=== PATIENT | male | born 1955 | race Caucasian/White ===

== ENCOUNTER 2021-03-16 00:37 | Day surgery (SDC) | payer OTHER, SELFPAY ==
[2021-03-06 09:14] VITALS: BMI 27.9
--- NOTE | 2021-03-16 08:04 | P.PNAN_ITS ---
Anes - Initial Pre Proc Eval Procedure: Operation Date: 03/16/21 09:00 Proposed Procedures p Screening Colonoscopy - Kelton Diop MD Date/Time: 03/16/21 08:04 Surgeon: Kelton Diop MD Pre Op Diagnosis: hx of colon polyps Patient Data Age: 65 Gender: M Height: 1.8 m Weight: 91 kg Allergies Allergy/AdvReac Type Severity Reaction Status Date / Time No Known Allergies Allergy Verified 03/16/21 08:05 Home Medications Medication Instructions Recorded Confirmed Type alpha lipoic acid 200 mg capsule 400 mg PO DAILY cap 02/15/19 03/16/21 History cinnamon bark 500 mg capsule 500 mg PO DAILY 02/15/19 03/16/21 History diltiazem HCl 240 mg 240 mg PO DAILY 02/15/19 03/16/21 History capsule,extended release 24 hr esomeprazole magnesium 20 mg 20 mg PO DAILY 02/15/19 03/16/21 History capsule,delayed release gabapentin 300 mg capsule 300 mg PO BID 02/15/19 03/16/21 History glucosamine-chondroitin 250 mg-200 1 tablet PO DAILY tablet 02/15/19 03/16/21 History mg tablet lisinopril 20 mg tablet 20 mg PO DAILY 02/15/19 03/16/21 History magnesium 250 mg tablet 250 mg PO DAILY 02/15/19 03/16/21 History resveratrol 250 mg capsule 250 mg PO DAILY cap 02/15/19 03/16/21 History cholecalciferol (vitamin D3) 25 mcg PO DAILY 03/06/21 03/16/21 History [Vitamin D3] mecobalamin (vitamin B12) 500 mcg PO DAILY 03/06/21 03/16/21 History vitamin B complex [B Complex] 1 tablet PO DAILY 03/06/21 03/16/21 History Patient hx anesthesia problems: none Family hx anesthesia problems: none Results Review: All pre-operative results and documents have been reviewed as part of the pre-operative evaluation. [facility] Past Medical History Medical History (Updated 03/16/21 @ 08:33 by Kelton Diop MD) Eosinophilic syndrome GERD (gastroesophageal reflux disease) History of melanoma Hyperlipidemia Hypertension Neuropathy BARON (obstructive sleep apnea) Vasospastic angina Family History Family History (System 02/28/19 @ 12:20 by Jud Rea) Father Cerebrovascular accident Grandparent Cerebrovascular accident Family history of lung cancer Mother Family history of lung cancer Sibling Family history of malignant neoplasm of breast in first degree relative Social History Social History (System 02/28/19 @ 12:20 by Jud Rea) Smoking status: Current every day smoker Tobacco type: e-cigarettes/vaping Alcohol intake: current Living arrangements: with family Spiritual care concerns: No Anes - Eval Final PreProcedure Day of Procedure 03/16/21 08:04 Patient weight: overweight Heart: regular rate and rhythm Lungs: clear to auscultation and normal air movement Airway: Mallampati scale class II Neurological: alert and oriented Last oral intake: >/= 8 hours ASA classification: III Emergent: no Anesthetic plan: proceed Anesthesia type and monitoring: general GIVS and standard monitoring Results Review: All pre-operative results and documents have been reviewed as part of the pre-operative evaluation. Informed Consent: The patient's anesthetic plan and its attendant risks and benefits were discussed with the patient/family/POA. Questions were solicited and answers provided to the satisfaction of the patient/family/POA.
[2021-03-16 08:06] VITALS: BP 156/78; PULSE 69; RESP 16; TEMP 36.1; O2SAT 99; BMI 27.3
[2021-03-16] MEDS: LACTATED RINGERS 1,000 ML 150 ML IV CONT (08:21)
--- NOTE | 2021-03-16 08:31 | WPDGICN ---
Assessment and Plan Assessment and plan (1) History of colon polyps: Code(s): Z86.010 - Personal history of colonic polyps Status: Acute Assessment and Plan: Patient has a history of Adenomatous colon polyp. Plan is for surveillance colonoscopy now. Further recommendations will be given after endoscopy. GI Consult Note Consult date/time: 03/16/21 08:31 HPI: Diomedes Gamboa is a 65 year old male Presents for screening colonoscopy. Patient reports his current weight appetite and bowel movements are normal. He denies abdominal pain. He has had no bleeding. Family history is non contribute patient does have a prior history of adenomatous colon polyp removed from the colon in 2004. Most recent colonoscopy 2014 revealed a hyperplastic colon polyp. Review of Systems Review of Systems: All systems reviewed & are unremarkable except as noted in HPI and below PMFSH Past Medical History Medical History (Updated 03/16/21 @ 08:33 by Kelton Diop MD) Eosinophilic syndrome GERD (gastroesophageal reflux disease) History of melanoma Hyperlipidemia Hypertension Neuropathy BARON (obstructive sleep apnea) Vasospastic angina Family History Family History (System 02/28/19 @ 12:20 by Jud Rea) Father Cerebrovascular accident Grandparent Cerebrovascular accident Family history of lung cancer Mother Family history of lung cancer Sibling Family history of malignant neoplasm of breast in first degree relative Social History Social History (System 02/28/19 @ 12:20 by Jud Rea) Smoking status: Current every day smoker Tobacco type: e-cigarettes/vaping Alcohol intake: current Living arrangements: with family Spiritual care concerns: No Meds Home Medications and Allergies Home Medications Medication Instructions Recorded Confirmed Type alpha lipoic acid 200 mg capsule 400 mg PO DAILY cap 02/15/19 03/16/21 History cinnamon bark 500 mg capsule 500 mg PO DAILY 02/15/19 03/16/21 History diltiazem HCl 240 mg 240 mg PO DAILY 02/15/19 03/16/21 History capsule,extended release 24 hr esomeprazole magnesium 20 mg 20 mg PO DAILY 02/15/19 03/16/21 History capsule,delayed release gabapentin 300 mg capsule 300 mg PO BID 02/15/19 03/16/21 History glucosamine-chondroitin 250 mg-200 1 tablet PO DAILY tablet 02/15/19 03/16/21 History mg tablet lisinopril 20 mg tablet 20 mg PO DAILY 02/15/19 03/16/21 History magnesium 250 mg tablet 250 mg PO DAILY 02/15/19 03/16/21 History resveratrol 250 mg capsule 250 mg PO DAILY cap 02/15/19 03/16/21 History cholecalciferol (vitamin D3) 25 mcg PO DAILY 03/06/21 03/16/21 History [Vitamin D3] mecobalamin (vitamin B12) 500 mcg PO DAILY 03/06/21 03/16/21 History vitamin B complex [B Complex] 1 tablet PO DAILY 03/06/21 03/16/21 History Allergies Allergy/AdvReac Type Severity Reaction Status Date / Time No Known Allergies Allergy Verified 03/16/21 08:05 Vital Signs Vital Signs - 24 hr 03/16/21 08:06 Temperature 96.9 F L Pulse Rate 69 Respiratory Rate 16 Blood Pressure 156/78 H Pulse Oximetry 99 Exam Narrative: Physical exam reveals patient be alert. Vital signs stable. HEENT exam is unremarkable. Lungs are clear to auscultation and percussion. Heart is without murmur or extra sounds. Abdomen bowel sounds present soft nontender. Digital rectal exam is normal.
[2021-03-16 09:03] VITALS: BP 126/77; PULSE 71; RESP 22; O2SAT 100
[2021-03-16 09:13] VITALS: BP 120/78; PULSE 62; RESP 15; O2SAT 100
[2021-03-16 09:23] VITALS: BP 139/76; PULSE 60; RESP 17; O2SAT 100
== END 2021-03-16 09:42 | disposition home or self-care (01) ==
PROVIDERS: Visit Provider Internal Medicine Gastroenterology
PROC: 0DJD8ZZ Inspection of Lower Intestinal Tract, Via Natural or Artificial Opening Endoscopic (ICD-10-PCS; CPT 45378; principal; 2021-03-16 09:00)
DX: Z12.11 Encounter for screening for malignant neoplasm of colon (principal); D12.5 Benign neoplasm of sigmoid colon; K63.5 Polyp of colon; K21.9 Gastro-esophageal reflux disease without esophagitis; K64.8 Other hemorrhoids; E78.5 Hyperlipidemia, unspecified; I10 Essential (primary) hypertension; G62.9 Polyneuropathy, unspecified; G47.33 Obstructive sleep apnea (adult) (pediatric); F17.290 Nicotine dependence, other tobacco product, uncomplicated
CPT/HCPCS: 45385; 88305; J2704; J7120

== ENCOUNTER 2022-07-02 08:06 | Outpatient (CLI) | payer OTHER, SELFPAY ==
[2022-07-02 08:46] LABS: Basophils Percent Auto 0.6 % (0.2-1.2); Eosinophils Absolute Auto 0.2 K/mm3 (0-0.3); Eosinophils Percent Auto 3.3 % (0-4.4); Hematocrit 42.2 % (42.0-52.0); Hemoglobin 13.5 g/dL (14.0-18.0); Immature Granulocyte Absolute 0.01 K/mm3 (0.00-0.031); Immature Granulocyte Percent A 0.1 % (0-0.5); Lymphocytes Absolute Auto 1.47 K/mm3 (0.9-3.2); Mean Corpuscular Volume 87.4 fl (80-100); Mean Platelet Volume 10.1 fl (7.4-10.4); Monocytes Absolute Auto 0.5 K/mm3 (0.1-0.6); Monocytes Percent Auto 7.6 % (2.6-8.5); Neutrophils Absolute Auto 4.7 K/mm3 (1.3-6.7); Neutrophils Percent Auto 67.4 % (45.5-73.1); Platelet Count Result 276 k/mm3 (150-375); Red Blood Count 4.83 M/mm3 (4.6-6.20); Red Cell Distribution Width 12.9 % (11.5-14.5)
[2022-07-02 08:56] LABS: Alanine Aminotransferase 41 U/L (6-50); Albumin Level 4.4 g/dL (3.5-5.1); Alkaline Phosphatase 72 U/L (38-126); Anion Gap 9 mmol/L (8-16); Aspartate Amino Transferase 29 U/L (17-59); Bilirubin,Total 0.5 mg/dL (0.2-1.3); Blood Urea Nitrogen 13 mg/dL (9-20); Calcium 8.8 mg/dL (8.4-10.2); Carbon Dioxide 31 mmol/L (22-30); Chloride 99 mmol/L (98-107); Cholesterol 168 mg/dL (0-200); Estimated Glomerular Filt Rate > 60; Glucose 129 mg/dL (65-110); HDL Direct 41 mg/dL; Sodium 139 mmol/L (137-145); Triglycerides 124 mg/dL (<150)
[2022-07-02 09:18] LABS: LDL Cholesterol Direct 85 mg/dL
== END 2022-07-02 08:07 | disposition home or self-care (01) ==
LOC: ANHLAB 08:10
PROVIDERS: PCP Family Medicine; Visit Provider Family Medicine
DX: R73.03 Prediabetes (principal); E78.5 Hyperlipidemia, unspecified; I10 Essential (primary) hypertension; D72.10 Eosinophilia, unspecified
CPT/HCPCS: 36415; 80053; 80061; 83036; 85025

== ENCOUNTER 2023-07-16 09:38 | Outpatient (CLI) | payer MEDICARE, SELFPAY ==
--- NOTE | ~2023-07-16 | US_ITS ---
EXAMINATION: US aorta [facility] scr[facility] DATE: 07/16/2023 10:50 CDT INDICATION: Abdominal aortic aneurysm screen. Smoking history. High cholesterol. Hypertension. TECHNIQUE: Grayscale, color Doppler, and pulsed Doppler images of the aorta and common iliac arteries were obtained. COMPARISON: None. FINDINGS: The proximal aorta measures 2 cm greatest sagittal dimension. The mid aorta measures 1.3 cm greatest sagittal dimension. The distal aorta measures 1.3 cm greatest sagittal dimension. The right common in ternal iliac artery measures 6 mm. The left common iliac artery measures 6 mm. IMPRESSION: 1. Normal caliber aorta without aneurysm. Reviewed, dictated and finalized at location A.
== END 2023-07-16 09:39 | disposition home or self-care (01) ==
DX: Z13.6 Encounter for screening for cardiovascular disorders (principal)
CPT/HCPCS: 76706

== ENCOUNTER 2024-08-11 12:22 | Outpatient (CLI) | payer MEDICARE, SELFPAY ==
--- NOTE | ~2024-08-11 | CT_ITS ---
CT Scan of the Chest without Contrast: Clinical Indication: Lung cancer screening, nicotine dependence Technique: Contiguous sections were acquired throughout the chest without intravenous contrast. Dose reduction technique was used on this scan by utilizing automated exposure control and iterative recon struction technique. The dose-length product (DLP) was 147.68 mGy-cm. Findings: There is no evidence of any significant mediastinal, hilar or axillary lymphadenopathy. Calcified med iastinal/hilar lymph nodes are present. Coronary artery calcifications are present. There is no evidence of pleural or pericardial effusion. 5 mm right middle lobe nodule present (axial image 96). 2 mm left upper lobe nodule present (axial im age 52). There is mild upper lobe emphysema. Images through the upper abdomen reveal no abnormalities. Impression: Lung RADS 2: Benign appearance 12 month follow-up screening CT advised. Reviewed, dictated and finalized at [facility]. Impression: Lung RADS 2: Benign appearance 12 month follow-up screening CT advised.
--- OUTSIDE RECORDS SUMMARY | 2024-08-11 12:27 | XMS_ITS | Clinical Summary ---
Author Organization [facility] [address] [address] [place] [address] Care Team Providers Care Attending Pathologist Name Role Phone Ashu Hardy MD Primary Care Provider + Allergies No known active allergies Medications magnesium oxide (MAG-OX) 415 mg (250 mg elemental) tablet take 1 by Oral route once [address] (NexIUM) 20 mg capsule Take 1 capsule (20 mg total) by mouth daily before breakfast Active resveratrol 250 mg capsule Take by mouth 2 (two) times a day. Active [id number] 750 mg-644 mg- 30 mg-1 mg tablet daily. Active VITAMIN B COMPLEX ORAL daily. Active gabapentin (NEURONTIN) 300 mg capsuleIndicati ons:Neuropathy Take 1 capsule (300 mg total) by mouth 3 (three) times a day 300 capsule 2 4 Active glycopyrrolate- formoteroL (Bevespi Aerosphere) 9-4.8 mcg inhaler Inhale 2 puffs 2 (two) times a day 3 each 3 4 Active lisinopriL (PRINIVIL,ZESTR IL) 20 mg tabletIndicatio ns:Hypertension , essential Take 1 tablet (20 mg total) by mouth daily 100 tablet 3 5 Active dilTIAZem XR (DILT-XR) 240 mg 24 hr capsuleIndicati ons:Hypertensio n associated with diabetes (HCC) Take 1 capsule (240 mg total) by mouth daily 100 capsule 1 5 Active dilTIAZem XR (DILT-XR) 240 mg 24 hr capsuleIndicati ons:Hypertensio n, essential TAKE 1 CAPSULE BY MOUTH DAILY 100 capsule 5 08/03/19 25 Discontinu ed(Reorder ) Active Problems Problem Noted Date Diagnosed Date BMI 28.0-28.9,adult 01/12/2023 Assessment & Plan (01/12/2023 2:17 PM CDT): Encouraged healthy diet and exercise through low sodium, low carbohydrate diet, with exercise. Electronic cigarette use 07/10/2022 Assessment & Plan (07/06/2023 1:57 PM CDT): 1. Chronic, poorly controlled 2. Patient continues to use electronic cigarette 3. Patient was counseled about cessation Assessment & Plan (01/12/2023 2:06 PM CDT): He has been counseled to discontinue vaping He is not ready to quit Information provided Assessment & Plan (07/10/2022 9:20 PM CDT): He has been counseled to discontinue vaping He is not ready to quit Information provided Type 2 diabetes mellitus with hyperlipidemia 02/2022 Assessment & Plan (02/01/2024 4:02 PM JAVA CORE DEVELOPER): 1. Chronic, elevated at 113 which is not goal for someone with diabetes 2. He plans to work on diet to help improve his numbers Assessment & Plan (07/06/2023 1:58 PM CDT): 1. Chronic, elevated at last check 2. Patient is using [id number] niacin 3. 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 Chronic, poorly controlled on recheck 2. His blood pressure was 150/72 3. He wants to try to get this down on his own 4. Will continue diltiazem and lisinopril for now Assessment & Plan (02/01/2024 4:00 PM JAVA CORE DEVELOPER): 1. Chronic, elevated in the 130s today in the office 2. Continue diltiazem and lisinopril Assessment & Plan (07/06/2023 1:56 PM CDT): 1. Chronic, poorly controlled today in office 2. Patient would like to work on lifestyle measures before changing any medications Assessment & Plan (01/12/2023 2:07 PM CDT): On lisinopril 20mg and diltiazem xr 240 mg Hypertension is improving with treatment Continue current treatment regimen Dietary sodium restriction Weight loss Regular aerobic exercise Continue current medications Blood pressure will be reassessed at the next regular appointment Assessment & Plan (07/07/2022 2:43 PM CDT): On lisinopril 20mg and diltiazem xr 240 mg Hypertension is improving with treatment Continue current treatment regimen Dietary sodium restriction Weight loss Regular aerobic exercise Continue current medications Blood pressure will be reassessed at the next regular appointment Assessment & Plan (01/06/2022 2:32 PM CDT): On lisinopril 20mg and diltiazem xr 240 mg Hypertension is improving with treatment Continue current treatment regimen Dietary sodium restriction Weight loss Regular aerobic exercise Continue current medications Blood pressure will be reassessed at the next regular appointment Assessment & Plan (06/24/2021 3:18 PM CDT): On lisinopril 20mg and diltiazem xr 240 mg Hypertension is improving with treatment Continue current treatment regimen Dietary sodium restriction Weight loss Regular aerobic exercise Continue current medications Blood pressure will be reassessed at the next regular appointment Severe obstructive sleep apnea 12/13/2019 Overview (12/13/2019): - in-lab PSG (): AHI 97.0 with O2 bala of 69%, CPAP 11 cmH2O Assessment & Plan (02/01/2024 4:01 PM JAVA CORE DEVELOPER): 1. Chronic, well-controlled 2. He is using his CPAP nightly, reviewed data on patients cuauhtemoc as he is not connected to [employer] Assessment & Plan (07/06/2023 1:56 PM CDT): 1. Chronic, well-controlled 2. He is using his CPAP nightly, reviewed data on patients cuauhtemoc as he is not connected to [employer] Assessment & Plan (07/07/2022 3:10 PM CDT): Chronic well controlled Using CPAP nightly Assessment & Plan (06/12/2020 5:11 PM CDT): 1. Chronic, well controlled 2. Provided him with new mask in clinic to see if it helps with leak 3. Continue to monitor Assessment & Plan (12/13/2019 3:01 PM CDT): 1. Patient is receiving benefit from his machine, but he is having issues with high leak 2. Will look into a way for his hose to hang above him in bed as he does not have a head board Type 2 diabetes mellitus, wi sethout long-term current use of insulin 12/13/2019 Assessment & Plan (08/02/2024 4:16 PM CDT): 1. Chronic, well controlled 2. Will continue lifestyle modifications Assessment & Plan (02/01/2024 4:10 PM JAVA CORE DEVELOPER): 1. Chronic, worsening 2. A1c is now 6.5, discussed diagnosis of type 2 diabetes 3. He has purchased an [id number]-ctvuxsa continuous glucose monitor and plans to use to help with diet Assessment & Plan (07/06/2023 1:57 PM CDT): 1. Chronic, worsening at last check 2. Patient will continue to work on diet and exercise Assessment & Plan (01/08/2022 3:56 PM CDT): 6.4 A1C on 01/01/2022 Your A1C shows a diagnosis of prediabetes. This means that your average blood sugars are elevated and this could progress to diabetes. The higher your A1C, the greater your risk is for developing type 2 diabetes. Please follow a low carbohydrate low cholesterol/saturated fat diet such as the mediterranean diet and get regular physical activity such as a minimum of 30 min 5 days a week of activity such as brisk walking. Assessment & Plan (06/24/2021 3:17 PM CDT): A1C 6.1 on 06/24/2021 Encourage low carb diet and increased physical activity Assessment & Plan (12/17/2020 5:11 PM CDT): 1. Chronic, worsening 2. Counseled patient regarding lifestyle modifications to help prevent diabetes Assessment & Plan (06/12/2020 4:19 PM CDT): 1. Chronic, stable 2. Consult patient regarding ways to decrease his blood sugar Assessment & Plan (12/13/2019 4:11 PM CDT): 1. Stable her patient's labs, continue to monitor History of melanoma 12/13/2019 Chronic bronchitis 12/13/2019 Assessment & Plan (02/01/2024 4:00 PM JAVA CORE DEVELOPER): 1. Chronic, stable 2. Continue Bevespi 3. Discussed stopping vaping Assessment & Plan (07/06/2023 1:57 PM CDT): 1. Chronic, stable 2. We will switch from Stiolto to Bevespi at patient request Assessment & Plan (07/07/2022 3:10 PM CDT): Symptoms well controlled Switch from Bevespi to stiolto 2 puffs daily Encourage vaping cessation F/u 6 mo Assessment & Plan (01/06/2022 2:54 PM CDT): Symptoms are stable on Bevespi 1 puff twice daily Triggered with mowing sometimes Symptoms are stable on current medications Encouraged vaping cessation Assessment & Plan (06/24/2021 3:25 PM CDT): Symptoms are stable on Bevespi 1 puff twice daily Triggered with mowing sometimes Symptoms are stable on current medications Assessment & Plan (06/12/2020 5:10 PM CDT): 1. Chronic, improved 2. Continue Bevespi Assessment & Plan (12/13/2019 4:11 PM CDT): 1. New, worsening 2. Will start Bevespi Hypereosinophilic syndrome 12/20/2017 Prinzmetal's angina 03/10/2017 Assessment & Plan (02/01/2024 4:01 PM JAVA CORE DEVELOPER): 1. Chronic, stable on diltiazem 2. Continue current management Assessment & Plan (12/13/2019 3:08 PM CDT): 1. Well-controlled on diltiazem 2. Continue current management and f/u cardiology Neuropathy 08/28/2015 Assessment & Plan (02/01/2024 4:00 PM JAVA CORE DEVELOPER): 1. Chronic, stable 2. Continue gabapentin 3 times daily 3. Discussed switching to Lyrica but he does not want to start this medication Assessment & Plan (07/06/2023 1:56 PM CDT): 1. Chronic, stable 2. Continue gabapentin 300 3 times daily Assessment & Plan (06/24/2021 3:29 PM CDT): Controlled with gabapentin 300 mg TID Continue current medications Assessment & Plan (12/13/2019 4:11 PM CDT): 1. Controlled with gabapentin 2. Refilled today Resolved Problems Problem Noted Date Diagnosed Date Resolved Date Annual physical exam 01/06/2022 024 Assessment & Plan (01/12/2023 2:06 PM CDT): Encourage monthly self testicular exams, every 6 mo dental, annual eye exams. Encourage increased vegetable, fruit, decreased salt, saturated fat, processed foods diet with increased physical activity. Labs reviewed. Assessment & Plan (01/06/2022 2:32 PM CDT): Encourage monthly self testicular exams, every 6 mo dental, annual eye exams. Encourage increased vegetable, fruit, decreased salt, saturated fat, processed foods diet with increased physical activity. Labs reviewed. Current smoker 05/21/2010 12/13/2019 Overview (07/08/2017): Description: 05/21/10 Encounters Date Type Department Care Team Description 08/07/2024 Telephone [facility] at the [address] [phone] Ashu aHrdy MD Medical Question/Miscellaneou s 08/02/2024 2:45 PM CDT Office Visit [facility] at the [address] [phone] Ashu Hardy MD Annual visit for general adult medical examination without abnormal findings (Primary Dx); Personal history of nicotine dependence; Hypertension associated with diabetes (HCC); Type 2 diabetes mellitus without complication, without long-term current use of insulin (HCC) from Last 3 Months Immunizations Immunization Administration Dates Next Due Influenza, Quad, Adjuvantate d, Intramuscular 01/24/2023 Influenza, Quadrivalent, Spl it, Intramuscular 01/18/2022,01/17/2021,12/27/2019,01/14,01/13/2017,01/15/2015 Influenza, Trivalent, IM (MDV) 01/22/2014 Influenza, Unspecified 01/09/2024,2022,01/09/2021,04/02(Deferred: Patient Refused) Pfizer SARS-CoV-2 Monovalent Vaccination (12+ Yrs) PURPLE 02/23/2023,12/16/2021,12/20/2020,04/05,03/15/2020 Pneumococcal Conjugate Pcv20 01/10/2023,12/30/19 Tdap 09/06/2016 ZOSTER Recombinant 05/11/2018,12/15/2017, 018 Medical History Medical History Date Comments Prinzmetal angina Neuropathy GERD (gastroesophageal reflux disease) 1979 Hypertension 2004 Hyperlipidemia History of colon polyps History of malignant melanoma Family History Medical History Relation Name Comments Other Brother 2 Alive and well; Hypertension Father Adiel Stroke Father Adiel Stroke; Cancer Maternal Grandfather Lc Stroke Maternal Grandmother Christal Cancer Mother Jory Hypertension Mother Jory Lung cancer Mother Jory Cancer, lung; Breast cancer Sister 1 Cancer, breast ; Cancer Sister 2 Leola Cancer Sister 3 Marysol Relation Name Status Comments Brother 1 Alive Brother 2 Father Adiel Maternal Grandfather Lc Maternal Grandmother Christal Mother Joyr Sister 1 Sister 2 Leola Sister 3 Marysol Social History Tobacco Use Types Packs/Day Years Used Date Smoking Tobacco: Former Cigarettes 0.8 35 0 10/11/1978 - 10/11/2013 Smokeless Tobacco: Never Tobacco Cessation:Counseling Given: Not Answered Alcohol Use Standard Drinks/Week Comments Yes 0 (1 standard drink = 0.6 oz pur e alcohol) AUDIT-C Answer Date Recorded Q1: How often do you have a drink containing alc ohol? 2-3 times a week 02/01/2024 Q2: How many drinks containi ng alcohol do you have on a typical day when you are drinking? 1 or 2 02/01/2024 Q3: How often do you have si x or more drinks on one occasion? Never 02/01/2024 PHQ-2 Answer Date Recorded PHQ-2 Total Score 0 02/01/2024 Sex and Gender Information Value Date Recorded Sex Assigned at Not on file Legal Sex Male 2:49 AM JAVA CORE DEVELOPER Gender Identity Not on file Sexual Orientation Not on file Obstetrics History Last Filed Vital Signs Vital Sign Reading Time Taken Comments Blood Pressure 134/74 08/02/2024 2:40 PM CDT Pulse 72 08/02/2024 2:40 PM CDT Temperature 37.1 C (98.8 F) 10/12/2018 3:12 PM CDT Respiratory Rate 18 01/12/2023 1:00 PM CDT Oxygen Saturation 97% 08/02/2024 2:40 PM CDT Inhaled Oxygen Concentration - - Weight 86.6 kg (191 lb) 08/02/2024 2:40 PM CDT Height 177.8 cm (5' 10 ) 08/02/2024 2:40 PM CDT Body Mass Index 27.41 08/02/2024 2:40 PM CDT Plan of Treatment Health Maintenance Due Date Last Done Comments Albumin Creatinine Ratio, Urine 1957 Hemoglobin A1C 1957 eGFR 1957 Foot Exam 1957 Hepatitis B Screening 11/13/1975 Lung Cancer Screening 11/13/2007 Lipid Panel 10/10/2019 10/09/2018, 11/27, 12/20/2016, Additional history exists Covid-19 Vaccine (2023- 5 season) 2023 02/23/2023, 02/23/2023, 12/16/2021, Additional history exists Prostate Cancer Screening-PSA 01/02/2024 Dilated Eye Exam 12/26/2024 12/27/2023 Depression Screening 01/31/2025 02/01/2024, 01/12/2023, 01/12/2023, Additional history exists Fall Risk Assessment 01/31/2025 02/01/2024, 01/12/2023, 01/06/2022 Well Visit 65+ 08/02/2025 08/02/2024, 11/0 08/2023, 01/12/2023, Additional history exists Colon Cancer Screening-Colonoscopy 03/16/2026 03/16/2021, 01/24/2015 DTaP/Tdap/Td Vaccine (2 - Td or Tdap) 09/06/2026 09/06/2016 Zoster Vaccine Completed 05/11/2018, 11/27, 12/14/2017 Colon Cancer Screening-CT Colonography Discontinued 03/16/2021, 01/24/2015 Colon Cancer Screening-DNA Stool Discontinued 03/16/2021, 03/16/2021, 03/16/2021, Additional history exists Colon Cancer Screening-FIT Discontinued 03/16, 03/16/2021, 03/16/2021, Additional history exists Colon Cancer Screening-Sigmoidoscopy Discontinued 03/16/2021, 01/24/2015 Pneumococcal vaccine 65+ Completed 01/10/2023, 06/2022 Abdominal Aortic Aneurysm (A AA) Screen Completed 07/16/2023 Influenza Vaccine Completed 01/09/2024, , 01/18/2023, Additional history exists Hepatitis C Screening Discontinued Procedures Procedure Name Priority Date/Time Associated Diagnosis Comments COLONOSCOPY Routine 03/16/2021 STOOL DNA COLOGUARD Routine 03/16/2021 LIPID PANEL Routine 10/09/2018 from Last 3 Months or Most Recently Relevant to Health Maintenance Results * Stool DNA - Cologuard (03/16/2021) Stool 03/16/2021 Minal Figueroa [employer] [facility] [facility] BODY FLUIDS AND STOOLS OR DERABLES Final Result EXTERNAL LAB * Colonoscopy (03/16/2021) Anatomical Region Laterality Modality Other 03/16/2021 Historical Provider MD ENDOSCOPY PROCEDURES Ayse l Result * Lipid panel (10/09/2018) SCRIBED Cholesterol, Total 193 na - na EXTERNAL LAB SCRIBED HDL 38 na - na EXTERNAL LAB SCRIBED LDL 109 na - na EXTERNAL LAB SCRIBED Triglycerides 230 na - na EXTERNAL LAB Blood specimen (specimen) us Historical Provider LAB BLOOD ORDERABLES Edit ed Result - Final EXTERNAL LAB from Last 3 Months or Most Recently Relevant to Health Maintenance Insurance [facility] CHOICE PLUS [facility] H[facility]/PPO Address: [address] [address] [place] [address] [facility] MEDICARE ADVANTAGE [facility] Address: [address] [address] [place] [address] Care Teams Attending Pathologist Relationship Specialty Start Date End Date Ashu Hardy MD [address] Bryce GOODMAN [address] [place] [id number] PCP - General Internal Medicine 12/13/19
--- OUTSIDE RECORDS SUMMARY | 2024-08-11 12:27 | XMS_ITS | Referral Summary ---
Author Organization [facility] [address] [facility] [address] Address [address] [place] [address] Care Team Providers Care Cryogenic Transport Driver Name Role Phone Ashu Hardy MD Primary Care Provider + Encounters Date Type Department Care Team Description 08/07/2024 Telephone [facility] at the [address] [address] Ashu Hardy MD Medical Question/Miscellaneou s 08/02/2024 2:45 PM CDT Office Visit [facility] at the [address] [address] Ashu Hardy MD Annual visit for general adult medical examination without abnormal findings (Primary Dx); Personal history of nicotine dependence; Hypertension associated with diabetes (HCC); Type 2 diabetes mellitus without complication, without long-term current use of insulin (HCC) from Last 3 Months Allergies No known active allergies Medications magnesium oxide (MAG-OX) 415 mg (250 mg elemental) tablet take 1 by Oral route once 0 [address] (NexIUM) 20 mg capsule Take 1 capsule (20 mg total) by mouth daily before breakfast Active resveratrol 250 mg capsule Take by mouth 2 (two) times a day. Active ptxhaltg-eutm-f jd3-H-krap-bosw 750 mg-644 mg- 30 mg-1 mg tablet [...] 02/2022 Assessment & Plan (02/01/2024 4:02 PM BOOKKEEPERS SUPERVISOR): 1. Chronic, elevated at 113 which is not goal for someone with diabetes 2. He plans to work on diet to help improve his numbers Assessment & Plan (07/06/2023 1:58 PM CDT): 1. Chronic, elevated at last check 2. Patient is using pxmu-lgh-oaosbdq niacin 3. Recommend patient use berberine 900-1500 [...] now Assessment & Plan (02/01/2024 4:00 PM BOOKKEEPERS SUPERVISOR): 1. Chronic, elevated in the 130s today [...] cmH2O Assessment & Plan (02/01/2024 4:01 PM BOOKKEEPERS SUPERVISOR): 1. Chronic, well-controlled 2. He is using his CPAP nightly, reviewed data on patients cuauhtemoc as he is not connected to [employer] Assessment & Plan (07/06/2023 1:56 PM CDT): 1. Chronic, well-controlled 2. He is using his CPAP nightly, reviewed data on patients cuauhtemoc as he is not connected to [employer] Assessment & Plan (07/07/2022 3:10 PM CDT): [...] head board Type 2 diabetes mellitus, wi thout long-term current use of insulin 12/13/2019 Assessment & Plan (08/02/2024 4:16 PM CDT): 1. Chronic, well controlled 2. Will continue lifestyle modifications Assessment & Plan (02/01/2024 4:10 PM BOOKKEEPERS SUPERVISOR): 1. Chronic, worsening 2. A1c is now 6.5, discussed diagnosis of type 2 diabetes 3. He has purchased an hfyd-hkv-ndacydp continuous glucose monitor and plans to use [...] 12/13/2019 Assessment & Plan (02/01/2024 4:00 PM BOOKKEEPERS SUPERVISOR): 1. Chronic, stable 2. Continue Bevespi 3. [...] 03/10/2017 Assessment & Plan (02/01/2024 4:01 PM BOOKKEEPERS SUPERVISOR): 1. Chronic, stable on diltiazem 2. Continue current management Assessment & Plan (12/13/2019 3:08 PM CDT): 1. Well-controlled on diltiazem 2. Continue current management and f/u cardiology Neuropathy 08/28/2015 Assessment & Plan (02/01/2024 4:00 PM BOOKKEEPERS SUPERVISOR): 1. Chronic, stable 2. Continue gabapentin 3 [...] smoker 05/21/2010 12/13/2019 Overview (07/08/2017): Description: 05/21/10 Immunizations Immunization Administration Dates Next Due Influenza, Quad, Adjuvantate d, Intramuscular 01/24/2023 Influenza, Quadrivalent, Spl it, Intramuscular 01/18/2022,01/17/2021,12/27/2019,01/14,01/13/2017,01/15/2015 Influenza, Trivalent, IM (MDV) 01/22/2014 Influenza, Unspecified 01/09/2024,2022,01/09/2021,04/02(Deferred: Patient Refused) Pfizer SARS-CoV-2 Monovalent Vaccination (12+ Yrs) PURPLE 02/23/2023,12/16/2021,12/20/2020,04/05,03/15/2020 Pneumococcal Conjugate Pcv20 01/10/2023,12/30/19 Tdap 09/06/2016 ZOSTER Recombinant 05/11/2018,12/15/2017, 018 Social History Tobacco Use Types Packs/Day Years [...] on file Legal Sex Male 2:49 AM BOOKKEEPERS SUPERVISOR Gender Identity Not on file Sexual Orientation Not on file Last Filed Vital Signs Vital Sign Reading [...] 08/02/2024 2:40 PM CDT Plan of Treatment Not on file Procedures Procedure Name Priority Date/Time Associated Diagnosis Comments COLONOSCOPY Routine 03/16/2021 STOOL DNA COLOGUARD Routine 03/16/2021 LIPID PANEL Routine 10/09/2018 from Last 3 Months or Most Recently Relevant to Health Maintenance Results * Stool DNA - Cologuard (03/16/2021) Stool 03/16/2021 Minal Figueroa MATERIAL CONTROL ANALYST LAB BODY FLUIDS AND STOOLS OR DERABLES Final Result EXTERNAL LAB * Colonoscopy (03/16/2021) Anatomical Region Laterality Modality Other 03/16/2021 Historical Provider ENDOSCOPY PROCEDURES Ayse l Result * Lipid panel (10/09/2018) SCRIBED Cholesterol, Total 193 na - na EXTERNAL LAB SCRIBED HDL 38 na - na EXTERNAL LAB SCRIBED LDL 109 na - na EXTERNAL LAB SCRIBED Triglycerides 230 na - na EXTERNAL LAB Blood specimen (specimen) Historical Provider LAB BLOOD ORDERABLES Edit ed Result - Final EXTERNAL LAB from Last 3 Months or Most Recently Relevant to Health Maintenance Insurance [facility] [employer] Care Teams Cryogenic Transport Driver Relationship Specialty Start Date End Date Ashu Hardy MD [facility] [address] Wu [address] [address] PCP - General Internal Medicine 12/13/19
--- OUTSIDE RECORDS SUMMARY | 2024-08-11 12:27 | XMS_ITS | Clinical Summary ---
Author Organization [facility] Address [address] [place] [address] Care Team Providers Care Interlocking And Signal Mechanic Name Role Phone Unavailable Primary Care Provider Unavailabl e Social History Tobacco Use Types Packs/Day Years Used Date Smoking Tobacco: Never Assessed Sex and Gender Information Value Date Recorded Sex Assigned at Not on file Legal Sex Male 7:13 PM CDT Gender Identity Not on file Sexual Orientation Not on file Plan of Treatment Health Maintenance Due Date Last Done Comments Colorectal Cancer Screening Colonoscopy (10 Years) 1955 Hepatitis C 11/13/1975 DTaP, Tdap and Td Vaccines ( 1 - Tdap) 1976 Pneumococcal Vaccine: 50+ Ye ars (1 of 1 - PCV) 11/13/2007 Zoster Vaccines (1 of 2) 11/13/2007 COVID-19 Vaccine ( - 2023-2 5 season) 2023 RSV Immunization or 60+ Years (1 - 1-dose 75+ series) 2032 Meningococcal B Vaccine Aged Out No l onger eligible based on patient's age to complete this topic Meningococcal Vaccine Aged Out No kaylen obey eligible based on patient's age to complete this topic RSV Immunizations Under 20 Months Aged Out No longer eligible based on patient's age to complete this topic
--- OUTSIDE RECORDS SUMMARY | 2024-08-11 12:28 | XMS_ITS | Encounter Summary ---
Author Organization [facility] Address [address] [facility] [place] [address] Care Team Providers Care Archivist Nonprofit Foundation Name Role Phone Vicki Jaramillo MD Primary Care Provider Encounter Details Date Type Department Care Team (Late st Contact Info) Description 03/30/2023 Lab Requisition [facility] - DermPath Lab [address] [facility], [place] [phone] Ifrah Benedict DO [address] [facility] 3 [place] [address] Social History Tobacco Use Types Packs/Day Years Used Date Smoking Tobacco: Never Assessed Sex and Gender Information Value Date Recorded Sex Assigned at Not on file Legal Sex Male 5:27 PM RN MEDICATION Gender Identity Not on file Sexual Orientation Not on file documented as of this encounter Plan of Treatment Not on file documented as of this encounter Procedures Procedure Name Priority Date/Time Associated Diagnosis Comments DERMATOPATHOLOGY Routine 03/30/2023 2:20 PM RN MEDICATION documented in this encounter Results * DERMATOPATHOLOGY (03/30/2023 2:20 PM RN MEDICATION) Case Report Dermatopathology Report Case: [id number] Authorizing Provider: Ifrah Benedict DO Collected: 03/30/2023 02:20 PM Ordering Location: [facility] DermPath Lab Received: 03/31/2023 12:39 PM Pathologist: Dana Cedillo MD Specimen: Skin, left mid back 11:41 AM RN MEDICATION DERMATOPATHOLOGY LABORATORY Final Diagnosis Specimen A. 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 The specimen consists of a shave biopsy measuring 3x3x1 mm. Jar 0. 11:41 AM [facility] DERMATOPATHOLOGY LABORATORY Microscopic Description Specimen A. SKIN, left mid back: There is a cup-shaped invagination filled with cornified material and surrounded by slight epidermal hyperplasia in association with acantholytic dyskeratosis. 4 11:41 AM [facility] DERMATOPATHOLOGY LABORATORY Disclaimer An external and internal positive and negative controls are appropriate for the histochemical, immunohistochemical and immunofluorescence stain(s) in this case (if any), except where stated explicitly. The performance characteristics of the stain(s) cited in this report were developed and its performance characteristic determined by the Dermatopathology Laboratory at [facility], directed by Dr. Leslie Kauffman. These tests need not be, and therefore are not, approved by the [place] Food and Drug Administration. The tests are used for clinical purposes. Billing Codes Specimen Charges Stain Charges 37001 1 4 11:41 AM [facility] DERMATOPATHOLOGY LABORATORY Embedded Images 11:41 AM [facility] DERMATOPATHOLOGY LABORATORY Pathology/Cytolo gy TISSUE SPECIMEN FROM SKIN / Unknown 03/30/2023 2:20 PM RN MEDICATION 03/31/2023 12:39 PM RN MEDICATION us Ifrah Benedict DO LAB - PATHOLOGY/CYTOLOGY ORDERABLES Final Result DERMATOPATHOLOGY LABORATORY [facility] - Department of Dermatology [facility] Medicine [address] [place] [address], [address] [phone] documented in this encounter Visit Diagnoses Not on filedocumented in this encounter Care Teams Archivist Nonprofit Foundation Relationship Specialty Start Date End Date Vicki Jaramillo MD [address] [place] [address] PCP - General 10/31/17 documented as of this encounter
--- OUTSIDE RECORDS SUMMARY | 2024-08-11 12:28 | XMS_ITS | Encounter Summary ---
Author Organization [facility] Address [address] [facility] [place] [address] Care Team Providers Care Flyer Maker Name Role Phone Vicki Jaramillo MD Primary Care Provider Encounter Details Date Type Department Care Team (Late st Contact Info) Description 10/06/2018 Lab Requisition [facility] Care DermPath Lab [address] [facility], [place] [address] Ifrah Benedict DO [address] [facility] 3 [place] [address] Social History Tobacco Use Types Packs/Day Years Used Date Smoking Tobacco: Never Assessed Sex and Gender Information Value Date Recorded Sex Assigned at Not on file Legal Sex Male 5:27 PM AP PROCESSOR Gender Identity Not on file Sexual Orientation Not on file documented as of this encounter Plan of Treatment Not on file documented as of this encounter Procedures Procedure Name Priority Date/Time Associated Diagnosis Comments DERMATOPATHOLOGY Routine 10/05/2018 12:0 0 AM CDT documented in this encounter Results * DERMATOPATHOLOGY (10/05/2018 12:00 AM CDT) Case Report Dermatopathology Report Case: [id number] Authorizing Provider: Ifrah Benedict DO Collected: 10/05/2018 12:00 AM Pathologist: Karen oMrton MD Received: 10/06/2018 10:34 AM Specimens: A) - Skin, right cheek B) - Skin, mid back C) - Skin, right hand D) - Skin, left abdomen 9 1:15 PM CDT DERMATOPATHOLOGY LABORATORY Final Diagnosis Specimen A. 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 SKIN, mid back: LICHEN PLANUS-LIKE KERATOSIS (BENIGN LICHENOID KERATOSIS) (L82.1) POST-INFLAMMATORY PIGMENT ALTERATION (L81.9) Specimen C. SKIN, right hand: PROMINENT BASILAR PIGMENTATION CONSISTENT WITH SOLAR LENTIGO (L81.4) Specimen D. SKIN, left abdomen: LICHEN PLANUS-LIKE KERATOSIS (BENIGN LICHENOID KERATOSIS) (L82.1) 1:15 PM T DERMATOPATHOLOGY LABORATORY Clinical History A: ESTELA H vs BCC B-D: R/O MM 1:15 PM T DERMATOPATHOLOGY LABORATORY Gross Description Specimen A: Received is one formalin filled container labeled with the patient's name and designated right cheek. The specimen consists of a shave biopsy measuring 5x5x1 mm. Jar 0. Specimen B: Received is one formalin filled container labeled with the patient's name and designated mid back. The specimen consists of a shave biopsy measuring 8x5x1 mm. Jar 0. Specimen C: Received is one formalin filled container labeled with the patient's name and designated right hand. The specimen consists of a shave biopsy measuring 5x3x1 mm. Jar 0. Specimen D: Received is one formalin filled container labeled with the patient's name and designated left abdomen. The specimen consists of a shave biopsy measuring 6x5x1 mm. Jar 0. 1:15 PM CDT DERMATOPATHOLOGY LABORATORY Microscopic Description Specimen A. SKIN, right cheek: There are prominent sebaceous gland lobules surrounding a dilated hair follicle. Specimen B. SKIN, mid back: The epidermis is mildly acanthotic. There is a lichenoid infiltrate with vacuolar changes of basilar keratinocytes and scattered necrotic keratinocytes. Sections show abundant melanin within melanophages around the superficial vascular plexus. Specimen C. SKIN, right hand: Sections show prominent pigmentation of the basal layer without a prominent increase in melanocytes. Some of the basilar keratinocytes are slightly enlarged but uniform. The rete ridges are not elongated. Specimen D. SKIN, left abdomen: The epidermis is mildly acanthotic. There is a lichenoid infiltrate with vacuolar changes of basilar keratinocytes and scattered necrotic keratinocytes. 1:15 PM CDT DERMATOPATHOLOGY LABORATORY Disclaimer An external and internal positive and negative controls are appropriate for the histochemical, immunohistochemical and immunofluorescence stain(s) in this case (if any), except where stated explicitly. The performance characteristics of the stain(s) cited in this report were developed and its performance characteristic determined by the Dermatopathology Laboratory at [facility], directed by Dr. Leslie Kauffman. These tests need not be, and therefore are not, approved by the [place] Food and Drug Administration. The tests are used for clinical purposes. Billing Codes Specimen Charges Stain Charges 05023 19625 37310 38636 1 1 1 1 9 1:15 PM CDT DERMATOPATHOLOGY LABORATORY Embedded Images 9 1:15 PM CDT DERMATOPATHOLOGY LABORATORY Pathology/Cytology TISSUE SPECIMEN FROM SKIN / Unknown 10/05/2018 10/06/2018 10:34 AM CDT Miscellaneous samples (specimen) TISSUE SPECIMEN FROM SKIN / Unknown 10/05/2018 10/06/2018 10:34 AM CDT Miscellaneous samples (specimen) TISSUE SPECIMEN FROM SKIN / Unknown 10/05/2018 10/06/2018 10:34 AM CDT Miscellaneous samples (specimen) TISSUE SPECIMEN FROM SKIN / Unknown 10/05/2018 10/06/2018 10:34 AM CDT Ifrah Benedict DO LAB - PATHOLOGY/CYTOLOGY ORDERABLES Final Result DERMATOPATHOLOGY LABORATORY [facility] - Department of Dermatology [address] [place] [address], 5th [place] [address], [facility] [phone] documented in this encounter Visit Diagnoses Not on filedocumented in this encounter Care Teams Flyer Maker Relationship Specialty Start Date End Date Vikci Jaramillo MD [address] [place] [address] PCP - General 10/31/17 documented as of this encounter
--- OUTSIDE RECORDS SUMMARY | 2024-08-11 12:28 | XMS_ITS | Encounter Summary ---
Author Organization [facility] Address [address] [place] [address] Care Team Providers Care Soil Expert Name Role Phone Ashu Hardy MD Primary Care Provider + Reason for Visit * Reason Onset Date Comments Medical Question/Miscellaneous 08/07/2024 Encounter Details Date Type Department Care Team (Late st Contact Info) Description 08/07/2024 Telephone [facility] Medical Group at the [address] [place] [address] Ashu Hardy MD [address] [place] [address] [address] [place] [address] Medical Question/Miscellaneous Social History Tobacco Use Types Packs/Day Years Used Date Smoking Tobacco: Former Cigarettes 0.8 35 0 10/11/1978 - 10/11/2013 Smokeless Tobacco: Never Alcohol Use Standard Drinks/Week Comments Yes 0 [...] on file Legal Sex Male 2:49 AM MASK DESIGN ENGINEER Gender Identity Not on file Sexual Orientation Not on file documented as of this encounter Miscellaneous Notes * Telephone Encounter - Sandy Collier - 08/08/2024 10:45 AM CDT Call Back Callerâ€™s Concern: Omero from [facility] calling back stating yes they need diagnosis code.I read to her below notes and she expressed understanding. Does message need to be routed? No * Telephone Encounter - Nai Gomez MA - 08/07/2024 2:47 PM CDT Tried to call Christy with [facility] back to clarify if he's requesting a diagnosis code as the telephone message wasn't clear. If he calls back and that's what is needed, according to the referral, the diagnosis code is Z87.891 for History of Nicotine dependence. * Telephone Encounter - Sue Lynn - 08/07/2024 1:02 PM CDT Medical Question/Miscellaneous Callerâ€™s Concern: Christy with [facility] calling to dx code CT lung screening . Does message need to be routed? Yes-Action Needed documented in this encounter Plan of Treatment Not on file documented as of this encounter Visit Diagnoses Not on filedocumented in this encounter Care Teams Soil Expert Relationship Specialty Start Date End Date Ashu Hardy MD [facility] [address] Bryce GOODMAN [address] [place] [address] PCP - General Internal Medicine 12/13/19 documented as of this encounter
--- OUTSIDE RECORDS SUMMARY | 2024-08-11 12:28 | XMS_ITS | Encounter Summary ---
Author Organization [facility] Address [address] [facility] [place] [address] Care Team Providers Care Battery Charger Tester Name Role Phone Vicki Jaramillo MD Primary Care Provider Encounter Details Date Type Department Care Team (Late st Contact Info) Description 02/26/2019 Lab Requisition [facility] DermPath Lab [address] [facility], [place] [address] Navneet Espinoza MD [address] [facility] [address] [place] [address] Social History Tobacco Use Types Packs/Day Years Used Date Smoking Tobacco: Never Assessed Sex and Gender Information Value Date Recorded Sex Assigned at Not on file Legal Sex Male 5:27 PM DENTAL DIRECTOR Gender Identity Not on file Sexual Orientation Not on file documented as of this encounter Plan of Treatment Not on file documented as of this encounter Procedures Procedure Name Priority Date/Time Associated Diagnosis Comments DERMPATH SLIDE CONSULT Routine 02/26/2019 12:00 AM DENTAL DIRECTOR documented in this encounter Results * DERMPATH SLIDE CONSULT (02/26/2019 12:00 AM DENTAL DIRECTOR) Case Report Dermatopathology Report Case: [id number] Authorizing Provider: Navneet Espinoza MD Collected: 02/26/2019 12:00 AM Ordering Location: [facility] DermPath Lab Received: 02/26/2019 08:08 AM Pathologist: Dana Cedillo MD Specimen: Slide(s), Right 4th nail bed 9 5:55 PM DENTAL DIRECTOR DERMATOPATHOLOGY LABORATORY Final Diagnosis Specimen A. Slide(s), Right 4th nail bed: NAIL MATRIX AND ACRAL SKIN, UNREMARKABLE (L98.9) (see microscopic description and comment) 5:55 PM [facility] DERMATOPATHOLOGY LABORATORY Clinical History Materials received from: [facility] Pathology [address] [place] [address] Received at the request of Dr. Navneet Espinoza, a consult will be performed on 8 (H&E) slide(s) and 1 block(s) labeled [id number]. Benign vascular proliferation/no melanocytic lesion. All slides returned. Any additional sections, special stains or immunohistochemical stains performed by our laboratory will be kept here on file. 5:55 PM [facility] DERMATOPATHOLOGY LABORATORY Microscopic Description Specimen A. Slide(s), Right 4th nail bed: Sections show fragments of nail matrix and acral skin. Nail matrix fragment shows presence of a subepithelial scattered small vessels, nerves, and glomus body. Melan-A immunostain performed at the outside institution and reviewed at [facility] does not reveal a melanocytic proliferation, however the majority of the nail matrix epithelium is not present for evaluation. Immunohistochemistr y is performed at [facility] for further aid in evaluation of the specimen. Sox-10 and MART-1/Melan-A do not reveal a melanocytic proliferation, however the majority of the nail matrix epithelium is no longer present for evaluation. COMMENT: The findings are nonspecific and consistent with unremarkable nail matrix and acral skin. A histologic explanation for a pigmented lesion is not identified in this specimen. Clinical correlation is recommended to ensure the biopsy is product representative of the clinical lesion. This case was also reviewed by Dr. Karen Morton who agrees with the diagnosis. 5:55 PM [facility] DERMATOPATHOLOGY LABORATORY Disclaimer An external and internal positive and negative controls are appropriate for the histochemical, immunohistochemical and immunofluorescence stain(s) in this case (if any), except where stated explicitly. The performance characteristics of the stain(s) cited in this report were developed and its performance characteristic determined by the Dermatopathology Laboratory at [facility], directed by Dr. Leslie Kauffman. These tests need not be, and therefore are not, approved by the [place] Food and Drug Administration. The tests are used for clinical purposes. Billing Codes Specimen Charges Stain Charges 83649 1 [id number] 71464 1 1 9 5:55 PM DENTAL DIRECTOR DERMATOPATHOLOGY LABORATORY Embedded Images 9 5:55 PM DENTAL DIRECTOR DERMATOPATHOLOGY LABORATORY Pathology/Cytolog y SLIDE / Unknown 02/26/2019 02/26/2019 8:08 AM DENTAL DIRECTOR us Navneet Espinoza MD LAB - PATHOLOGY/CYTOLOGY ORDER GRZEGORZ Final Result DERMATOPATHOLOGY LABORATORY [facility] - Department of Dermatology [address] [place] [address], 5th Floor Lab [address] [phone] documented in this encounter Visit Diagnoses Not on filedocumented in this encounter Care Teams Battery Charger Tester Relationship Specialty Start Date End Date Vicki Jaramillo MD [address] [place] [address] PCP - General 10/31/17 documented as of this encounter
--- OUTSIDE RECORDS SUMMARY | 2024-08-11 12:28 | XMS_ITS | Clinical Summary ---
Author Organization [facility] Address [address] [place] [address] Care Team Providers Care Rn Case Mgr Name Role Phone Vicki Jaramillo MD Primary Care Provider Source Comments [facility],non-owned Affiliates and Associated Physician Practices is amultiple site organization consisting of ambulatory clinics and hospital sitesin [place], [place], [place] and [place]. This disclosure is being madepursuant to the Care Everywhere program and may not contain all information available regarding this patient. Last updated 17.[facility] [employer] [place] Social History Tobacco Use Types Packs/Day Years Used Date Smoking Tobacco: Never Assessed Sex and Gender Information Value Date Recorded Sex Assigned at Not on file Legal Sex Male 5:27 PM [employer]IOR [employer] Gender Identity Not on file Sexual Orientation Not on file Plan of Treatment Health Maintenance Due Date Last Done Comments COLOGUARD (AGES 45-75) - COL ON CA SCREENING 1957 COLON MONITORING 1957 COLONOSCOPY - COLON CA SCREENING 1957 CT COLONOGRAPHY - COLON CA SCREENING 1957 Colorectal Cancer Screening 1957 FIT - COLON CA SCREENING 1957 FLEX SIG - COLON CA SCREENING 1957 LIPID TESTING 1957 HEPATITIS C SCREENING 11/08/1975 DTAP/TDAP/TD VACCINES (1 - Tdap) 1976 PNEUMOCOCCAL VACCINE 50+ (1 of 1 - PCV) 11/13/2007 ZOSTER VACCINE (1 of 2) 11/13/2007 COVID-19 VACCINE ( - 2023-2 5 season) 2023 DEPRESSION SCREENING 03/28/2024 INFLUENZA VACCINE (Season Ended) 2024 Respiratory Syncytial Virus (RSV) Vaccine Pt: or over 60 yrs (1 - 1-dose 75+ series) 2032 HEPATITIS B VACCINE Aged Out No longe r eligible based on patient's age to complete this topic HIB VACCINE Aged Out No longer eligi ble based on patient's age to complete this topic HPV VACCINE Aged Out No longer eligi ble based on patient's age to complete this topic MENINGOCOCCAL (Group B) VACC INE SHARED DECISION-MAKING Aged Out No longer eligibl e based on patient's age to complete this topic MENINGOCOCCAL GROUPS A/C/Y/W VACCINE Aged Out No longer eligible b ased on patient's age to complete this topic Insurance [facility] Care Teams Rn Case Mgr Relationship Specialty Start Date End Date Vicki Jaramillo MD [address] [place] [address] PCP - General 10/31/17
== END 2024-08-11 12:23 | disposition home or self-care (01) ==
DX: Z12.2 Encounter for screening for malignant neoplasm of respiratory organs (principal); Z87.891 Personal history of nicotine dependence
CPT/HCPCS: 71271